=== PATIENT | male | born 1985 | race African-American/Black ===

== ENCOUNTER 2017-01-12 12:47 | Emergency (ER) | payer MEDICAID ==
[~2017-01-12] VITALS: Ht 180.3 cm; Wt 73.8 kg
[~2017-01-12 12:47] MED LIST: ARIP400S3 IM; DIVA500T2; OLAN15TA3
[2017-01-12 12:49] VITALS: BP 135/73
== END 2017-01-12 14:47 | disposition home or self-care (01) ==
LOC: ED 13:13
DX: M25.552 Pain in left hip (principal); F31.9 Bipolar disorder, unspecified

== ENCOUNTER 2017-04-13 21:02 | Emergency (ER) | payer MEDICAID ==
[~2017-04-13] VITALS: Ht 180.3 cm; Wt 75.6 kg
[2017-04-13] MEDS ORDERED: CEFTRIAXONE 250 MG ONE (22:22)
[2017-04-13] MEDS ORDERED: LIDOCAINE 1%, 20ML ONE (22:22)
[2017-04-13] MEDS ORDERED: AZITHROMYCIN 250 MG TABLET ONE (22:25)
[2017-04-13] MEDS ORDERED: AZITHROMYCIN 500 MG TABLET PO ONE (22:30)
[2017-04-13] MEDS ORDERED: CEFTRIAXONE 250 MG IM ONE (22:30)
[2017-04-13 22:41] VITALS: BP 118/82
== END 2017-04-13 22:43 | disposition home or self-care (01) ==
LOC: ED 22:30
DX: N30.00 Acute cystitis without hematuria (principal); Z20.2 Contact with and (suspected) exposure to infections with a predominantly sexual mode of transmission; F17.210 Nicotine dependence, cigarettes, uncomplicated
CPT/HCPCS: 81001; 87086; 87491; 87591; 96372; 99284; J0696

== ENCOUNTER 2017-12-16 09:09 | Emergency (ER) | payer MEDICAID ==
[~2017-12-16] VITALS: Ht 185.4 cm; Wt 78.0 kg
[2017-12-16 09:16] VITALS: BP 142/89
[2017-12-16] MEDS ORDERED: DIPH,PERTUSS(ACELL),TET VAC/PF 0.5 ML IM-VACC ONE ×2 (09:24→09:30)
[2017-12-16] MEDS ORDERED: LIDOCAINE 2%, 20ML SQ ONE (09:30)
[2017-12-16] MEDS ORDERED: BACITRACIN ZINC OINT 500U/GM, 0.9 GM ONE (09:50)
== END 2017-12-16 10:21 | disposition home or self-care (01) ==
LOC: ED 10:00
DX: S51.812A Laceration without foreign body of left forearm, initial encounter (principal); F17.210 Nicotine dependence, cigarettes, uncomplicated; W06.XXXA Fall from bed, initial encounter; Y93.89 Activity, other specified; Y92.89 Other specified places as the place of occurrence of the external cause; Y99.8 Other external cause status
CPT/HCPCS: 12002; 90471; 90715

== ENCOUNTER 2018-07-08 22:14 | Emergency (ER) | payer MEDICAID ==
[~2018-07-08] VITALS: Ht 180.3 cm; Wt 71.0 kg
[2018-07-08 22:14] VITALS: BP 158/104
== END 2018-07-08 23:26 | disposition home or self-care (01) ==
LOC: ED 22:36
DX: F32.1 Major depressive disorder, single episode, moderate (principal); Z59.0 Homelessness; F41.9 Anxiety disorder, unspecified
CPT/HCPCS: 99284

== ENCOUNTER 2018-10-04 00:50 | Emergency (ER) | payer MEDICAID ==
[~2018-10-04] VITALS: Ht 180.3 cm; Wt 64.2 kg
[2018-10-04 00:56] VITALS: BP 146/90
== END 2018-10-04 01:52 | disposition home or self-care (01) ==
LOC: ED 01:10
DX: S62.336A Displaced fracture of neck of fifth metacarpal bone, right hand, initial encounter for closed fracture (principal); F17.200 Nicotine dependence, unspecified, uncomplicated; Z88.5 Allergy status to narcotic agent; X58.XXXA Exposure to other specified factors, initial encounter; Y93.89 Activity, other specified; Y92.009 Unspecified place in unspecified non-institutional (private) residence as the place of occurrence of the external cause; Y99.8 Other external cause status
CPT/HCPCS: 29125; 99283

== ENCOUNTER 2018-10-31 18:56 | Inpatient (IN) | payer MEDICAID ==
[~2018-10-31] VITALS: Ht 180.3 cm; Wt 65.0 kg
[2018-10-31] MEDS ORDERED: SODIUM CHLORIDE 0.9% 1,000ML IVBOLUS ONE (19:00)
[2018-10-31] MEDS ORDERED: SODIUM CHLORIDE FLUSH 10ML SYR IVF ONE (19:00)
[2018-10-31] MEDS ORDERED: ACETAMINOPHEN 500 MG TABLET PO ONE (19:00)
[2018-10-31] MEDS ORDERED: ONDANSETRON 2MG/ML, 2ML IVPush ONE (19:00)
[2018-10-31] MEDS ORDERED: ACETAMINOPHEN 500 MG TABLET ONE (19:04)
[2018-10-31] MEDS ORDERED: ONDANSETRON 2MG/ML, 2ML ONE (19:07)
[2018-10-31] MEDS ORDERED: MORPHINE SULFATE 4 MG/ML, 1ML ONE (19:07)
[2018-10-31] MEDS: MORPHINE SULFATE 4 MG/ML, 1ML IVPush PRN ×2 (19:08→19:28)
[2018-10-31 19:32] LABS: MEAN CORPUSCULAR HEMOGLOBIN 27.2 pg (27.5-34.5); MEAN CORPUSCULAR HGB CONC 32.8 g/dL (33.2-36.2); MEAN CORPUSCULAR VOLUME 82.9 fL (81-97); PLATELET COUNT 213 x10^3/uL (130-400); RED BLOOD COUNT 4.82 x10^6/uL (4.38-5.82); RED CELL DISTRIBUTION WIDTH 15.2 % (9.4-14.8)
[2018-10-31 19:45] LABS: ALANINE AMINOTRANSFERASE 19 U/L (12-78); ALBUMIN 3.3 g/dL (3.4-5.0); ANION GAP 6 mmol/L (5-15); CALCIUM 8.2 mg/dL (8.5-10.1); CHLORIDE 103 mmol/L (98-107); CREATININE 0.91 mg/dL (0.7-1.3)
[2018-10-31 19:50] LABS: ALKALINE PHOSPHATASE 79 U/L (45-117); BILIRUBIN,TOTAL 0.5 mg/dL (0.2-1.0); TROPONIN I < 0.015 ng/mL (0.000-0.045)
[2018-10-31] MEDS ORDERED: CEFTRIAXONE 1,000 MG in SODIUM CHLORIDE 0.9% 50 ML IVPB ONE (20:00)
[2018-10-31] MEDS ORDERED: AZITHROMYCIN 500 MG in SODIUM CHLORIDE 0.9% 250 ML IVPB ONE (20:00)
[2018-10-31 20:16] LABS: BASOPHILS # (AUTO) 0.01 x10^3/uL (0-0.1); BASOPHILS % (AUTO) 0 % (0-1); EOSINOPHILS # (AUTO) 0.01 x10^3/uL (0-0.4); EOSINOPHILS % (AUTO) 0 % (1-7); LYMPHOCYTES # (AUTO) 1.23 x10^3/uL (1-3.4); LYMPHOCYTES % (AUTO) 8 % (22-44); MD SCAN; MONOCYTES # (AUTO) 1.38 x10^3/uL (0.2-0.8); MONOCYTES % (AUTO) 9 % (2-9); NEUTROPHILS # (AUTO) 12.14 x10^3/uL (1.8-6.8); NEUTROPHILS % (AUTO) 82 % (42-75)
[2018-10-31] MEDS ORDERED: OMNIPAQUE 350 MG/ML, 100ML BOTTLE ONE (20:30)
[2018-10-31] MEDS ORDERED: HYDROmorphone 2 MG/ML, 1ML ONE (20:38)
[2018-10-31] MEDS ORDERED: HYDROmorphone 2 MG/ML, 1ML IVPush PRN ×2 (21:00→23:00)
[2018-10-31] MEDS ORDERED: SODIUM CHLORIDE 0.9% 1,000 ML IV SCH (22:37)
[2018-10-31] MEDS ORDERED: ACETAMINOPHEN 325 MG TABLET PO PRN (23:00)
[2018-10-31] MEDS ORDERED: hydrALAzine 20 MG/ML, 1ML IVPush PRN (23:00)
[2018-10-31] MEDS ORDERED: ONDANSETRON 2MG/ML, 2ML IVPush PRN (23:00)
[2018-10-31] MEDS ORDERED: TEMAZEPAM 15 MG CAPSULE PO PRN (23:00)
[2018-10-31] MEDS ORDERED: LIDODERM 5% PATCH TD PRN (23:00)
[2018-10-31] MEDS ORDERED: DOCUSATE 100 MG CAPSULE PO PRN (23:00)
[2018-10-31 23:59] VITALS: BP 154/84
[2018-11-01] MEDS: NICOTINE 21 MG/24 HR PATCH.TD24 TD SCH ×2 (00:12→23:00)
[2018-11-01] MEDS ORDERED: ALBUTEROL SULFATE 2.5 MG/3 ML ONE (00:33)
[2018-11-01] MEDS: ALBUTEROL SULFATE 2.5 MG/3 ML NPPB SCH ×5 (00:35→18:30)
[2018-11-01 01:43] LABS: MICROSCOPIC INDICATED
[2018-11-01 01:47] LABS: CULTURE INDICATED? NO
[2018-11-01 05:13] LABS: MEAN CORPUSCULAR HEMOGLOBIN 27.5 pg (27.5-34.5); MEAN CORPUSCULAR HGB CONC 33.4 g/dL (33.2-36.2); MEAN CORPUSCULAR VOLUME 82.4 fL (81-97); MEAN PLATELET VOLUME 8.8 fL (7.4-10.4); PLATELET COUNT 186 x10^3/uL (130-400); RED BLOOD COUNT 4.23 x10^6/uL (4.38-5.82); RED CELL DISTRIBUTION WIDTH 15.2 % (9.4-14.8)
[2018-11-01 05:25] LABS: ALBUMIN 2.4 g/dL (3.4-5.0); ANION GAP 7 mmol/L (5-15); CALCIUM 7.2 mg/dL (8.5-10.1); CHLORIDE 108 mmol/L (98-107)
[2018-11-01 05:29] LABS: ALANINE AMINOTRANSFERASE 14 U/L (12-78); ALKALINE PHOSPHATASE 63 U/L (45-117); BILIRUBIN,TOTAL 1.1 mg/dL (0.2-1.0); CREATININE 0.72 mg/dL (0.7-1.3)
[2018-11-01 05:37] LABS: BASOPHILS # (AUTO) 0.01 x10^3/uL (0-0.1); BASOPHILS % (AUTO) 0 % (0-1); EOSINOPHILS # (AUTO) 0.01 x10^3/uL (0-0.4); EOSINOPHILS % (AUTO) 0 % (1-7); LYMPHOCYTES # (AUTO) 0.74 x10^3/uL (1-3.4); LYMPHOCYTES % (AUTO) 3 % (22-44); MD SCAN; MONOCYTES # (AUTO) 1.66 x10^3/uL (0.2-0.8); MONOCYTES % (AUTO) 8 % (2-9); NEUTROPHILS # (AUTO) 19.39 x10^3/uL (1.8-6.8); NEUTROPHILS % (AUTO) 89 % (42-75)
[2018-11-01] MEDS: ENOXAPARIN 40 MG/0.4 ML SQ SCH (05:45)
[2018-11-01 08:08] VITALS: BP 107/71
[2018-11-01] MEDS ORDERED: POTASSIUM CHLORIDE 20 MEQ TAB.ER.PRT PO ONE (08:30)
[2018-11-01] MEDS ORDERED: ACETAMINOPHEN 325 MG TABLET PO PRN (08:30)
[2018-11-01] MEDS: CEFTRIAXONE PMX 1GM/50ML 50 ML IV SCH ×2 (09:48→21:48)
[2018-11-01 13:22] VITALS: BP 115/76
[2018-11-01 19:16] VITALS: BP 147/81
[2018-11-01] MEDS ORDERED: ALBUTEROL SULFATE 2.5 MG/3 ML NPPB PRN (20:00)
[2018-11-01] MEDS ORDERED: AZITHROMYCIN 500 MG in SODIUM CHLORIDE 0.9% 250 ML IV SCH (22:00)
[2018-11-01] MEDS: SODIUM CHLORIDE 0.9% 1,000 ML IV SCH (22:37)
[2018-11-02 01:16] VITALS: BP 114/75
[2018-11-02] MEDS: ENOXAPARIN 40 MG/0.4 ML SQ SCH (05:29)
[2018-11-02 05:42] LABS: MEAN CORPUSCULAR HEMOGLOBIN 27.7 pg (27.5-34.5); MEAN CORPUSCULAR HGB CONC 33.3 g/dL (33.2-36.2); MEAN CORPUSCULAR VOLUME 83.3 fL (81-97); MEAN PLATELET VOLUME 8.6 fL (7.4-10.4); PLATELET COUNT 211 x10^3/uL (130-400); RED BLOOD COUNT 4.42 x10^6/uL (4.38-5.82); RED CELL DISTRIBUTION WIDTH 15.3 % (9.4-14.8)
[2018-11-02 05:58] LABS: CHLORIDE 110 mmol/L (98-107); CREATININE 0.64 mg/dL (0.7-1.3)
[2018-11-02 05:59] LABS: ANION GAP 6 mmol/L (5-15); CALCIUM 8.6 mg/dL (8.5-10.1)
[2018-11-02 06:13] LABS: BASOPHILS # (AUTO) 0.01 x10^3/uL (0-0.1); BASOPHILS % (AUTO) 0 % (0-1); EOSINOPHILS # (AUTO) 0.08 x10^3/uL (0-0.4); EOSINOPHILS % (AUTO) 0 % (1-7); LYMPHOCYTES # (AUTO) 1.43 x10^3/uL (1-3.4); LYMPHOCYTES % (AUTO) 7 % (22-44); MD SCAN; MONOCYTES % (AUTO) 10 % (2-9); NEUTROPHILS # (AUTO) 16.47 x10^3/uL (1.8-6.8); NEUTROPHILS % (AUTO) 82 % (42-75)
[2018-11-02 06:59] VITALS: BP 126/87
[2018-11-02] MEDS: SODIUM CHLORIDE 0.9% 1,000 ML IV SCH ×2 (08:36→19:54)
[2018-11-02] MEDS: CEFTRIAXONE PMX 1GM/50ML 50 ML IV SCH ×2 (11:10→21:41)
[2018-11-02] MEDS: SENNA/DOCUSATE TABLET PO SCH (11:10)
[2018-11-02 14:15] VITALS: BP 116/73
[2018-11-02] MEDS: ACETAMINOPHEN 325 MG TABLET PO SCH ×2 (14:40→19:54)
[2018-11-02 19:38] VITALS: BP 115/79
[2018-11-02] MEDS: NICOTINE 21 MG/24 HR PATCH.TD24 TD SCH (23:00)
[2018-11-03] MEDS: ACETAMINOPHEN 325 MG TABLET PO SCH ×2 (02:32→08:30)
[2018-11-03 02:36] VITALS: BP 133/78
[2018-11-03] MEDS: SODIUM CHLORIDE 0.9% 1,000 ML IV SCH (05:23)
[2018-11-03] MEDS: ENOXAPARIN 40 MG/0.4 ML SQ SCH (05:24)
[2018-11-03 07:32] VITALS: BP 126/81
[2018-11-03 07:58] LABS: MEAN CORPUSCULAR HEMOGLOBIN 26.9 pg (27.5-34.5); MEAN CORPUSCULAR HGB CONC 32.5 g/dL (33.2-36.2); MEAN CORPUSCULAR VOLUME 82.7 fL (81-97); MEAN PLATELET VOLUME 8.8 fL (7.4-10.4); PLATELET COUNT 246 x10^3/uL (130-400); RED BLOOD COUNT 4.53 x10^6/uL (4.38-5.82); RED CELL DISTRIBUTION WIDTH 15.5 % (9.4-14.8)
[2018-11-03 08:18] LABS: BASOPHILS # (AUTO) 0.03 x10^3/uL (0-0.1); BASOPHILS % (AUTO) 0 % (0-1); EOSINOPHILS # (AUTO) 0.13 x10^3/uL (0-0.4); EOSINOPHILS % (AUTO) 1 % (1-7); LYMPHOCYTES # (AUTO) 1.84 x10^3/uL (1-3.4); LYMPHOCYTES % (AUTO) 15 % (22-44); MD SCAN; MONOCYTES # (AUTO) 0.94 x10^3/uL (0.2-0.8); MONOCYTES % (AUTO) 8 % (2-9); NEUTROPHILS # (AUTO) 9.26 x10^3/uL (1.8-6.8); NEUTROPHILS % (AUTO) 76 % (42-75)
[2018-11-03] MEDS: SENNA/DOCUSATE TABLET PO SCH (08:54)
[2018-11-03] MEDS ORDERED: NICO-487 TD (09:14)
[2018-11-03] MEDS ORDERED: DOXY100C2 PO (09:14)
[2018-11-03] MEDS ORDERED: AMOX-291 PO (09:14)
== END 2018-11-03 10:30 | disposition home or self-care (01) | DRG 871 ==
LOC: MERGE 18:56 → ED 19:52 → EDIP 20:03 → 4WST 23:52 → DCLOUNGE 11-03 10:12
PROVIDERS: ADMIT Internal Medicine; ATTEND Internal Medicine
DX: A41.9 Sepsis, unspecified organism (principal); J15.9 Unspecified bacterial pneumonia; E87.6 Hypokalemia; F17.210 Nicotine dependence, cigarettes, uncomplicated; F31.9 Bipolar disorder, unspecified; G47.00 Insomnia, unspecified; I10 Essential (primary) hypertension; J45.909 Unspecified asthma, uncomplicated; Z59.0 Homelessness; Z82.5 Family history of asthma and other chronic lower respiratory diseases; Z88.8 Allergy status to other drugs, medicaments and biological substances; Z71.6 Tobacco abuse counseling
CPT/HCPCS: 36415; 36600; 84145; 87806; 99285; J7613; 71045; 71275; 80048; 80053; 81001; 82803; 83605; 83735; 83880; 84484; 85025; 87040; 93005; 93306; 94640; G0378; J0456; J0696; J1170; J1650; J2405; Q9967; G0475; J7030; J7050

== ENCOUNTER 2018-12-05 18:04 | Emergency (ER) | payer MEDICAID ==
[~2018-12-05] VITALS: Ht 180.3 cm; Wt 68.2 kg
[~2018-12-05 18:04] MED LIST changes: +AMOX-291 PO; +DOXY100C2 PO; +NICO-487 TD
[2018-12-05 18:49] VITALS: BP 109/66
--- NOTE | 2018-12-05 18:54 | NUR ---
PT AMBULATED TO ROOM WITH EDT.
--- NOTE | 2018-12-05 19:20 | NUR ---
KYLE GARNETT, AT BEDSIDE TO EVALUATE PT.
--- NOTE | 2018-12-05 19:27 | NUR ---
PT AMBULATED TO IMAGING, WITH TECH.
--- NOTE | 2018-12-05 19:31 | NUR ---
PT BACK TO ROOM FROM IMAGING.
--- NOTE | 2018-12-05 20:21 | NUR ---
Patient/Caregiver given discharge instructions and they have confirmed that they understand the instructions. Patient ambulatory with steady gait.
== END 2018-12-05 20:23 | disposition home or self-care (01) ==
LOC: ED 20:00
DX: J06.9 Acute upper respiratory infection, unspecified (principal); F17.210 Nicotine dependence, cigarettes, uncomplicated
CPT/HCPCS: 71046; 99283

== ENCOUNTER 2019-01-17 23:52 | Emergency (ER) | payer MEDICAID ==
[~2019-01-17] VITALS: Ht 180.3 cm; Wt 65.0 kg
--- NOTE | 2019-01-18 00:06 | NUR ---
assessment made. PA at bedside.
--- NOTE | 2019-01-18 00:18 | NUR ---
Blood drawn by brush clearing laborer. medicated. X ray at bedside.
[2019-01-18] MEDS ORDERED: ALBUTEROL/IPRATROPIUM 2.5MG/0.5MG, 3 ML ONE (00:23)
--- NOTE | 2019-01-18 00:28 | NUR ---
RT at bedside for breathing treatment.
[2019-01-18 00:30] LABS: MEAN CORPUSCULAR HEMOGLOBIN 27.3 pg (27.5-34.5); MEAN CORPUSCULAR HGB CONC 33.2 g/dL (33.2-36.2); MEAN CORPUSCULAR VOLUME 82.4 fL (81-97); MEAN PLATELET VOLUME 8.2 fL (7.4-10.4); PLATELET COUNT 219 x10^3/uL (130-400); RED BLOOD COUNT 4.61 x10^6/uL (4.38-5.82); RED CELL DISTRIBUTION WIDTH 15.5 % (9.4-14.8)
[2019-01-18] MEDS ORDERED: ALBUTEROL/IPRATROPIUM 2.5MG/0.5MG, 3 ML NPPB ONE (00:30)
[2019-01-18 00:31] LABS: ALANINE AMINOTRANSFERASE 20 U/L (12-78); ALBUMIN 3.6 g/dL (3.4-5.0); ANION GAP 5 mmol/L (5-15); CALCIUM 8.1 mg/dL (8.5-10.1); CHLORIDE 109 mmol/L (98-107); CREATININE 0.89 mg/dL (0.7-1.3)
[2019-01-18 00:35] LABS: ALKALINE PHOSPHATASE 70 U/L (45-117); BILIRUBIN,TOTAL 0.2 mg/dL (0.2-1.0); TOTAL PROTEIN 7.1 g/dL (6.4-8.2); TROPONIN I < 0.015 ng/mL (0.000-0.045)
[2019-01-18 00:56] LABS: MD YES
--- NOTE | 2019-01-18 00:58 | NUR ---
pt stated pt recieved breathing tx vss stable family at bed miguel e
[2019-01-18 01:05] LABS: BAND#(MANUAL) 0.04 x10^3/uL; BANDS%(MANUAL) 1 % (0-7); EOS#(MANUAL) 0.07 x10^3/uL (0.0-0.4); EOS% (MANUAL) 2 % (1-7); LYMPH#(MANUAL) 0.97 x10^3/uL (1-3.4); LYMPHS% (MANUAL) 27 % (22-44); MONOS#(MANUAL) 0.76 x10^3/uL (0.3-2.7); MONOS% (MANUAL) 21 % (2-9); SEG#(MANUAL) 1.76 x10^3/uL (1.8-6.8); SEGS% (MANUAL) 49 % (42-75)
[2019-01-18 01:06] LABS: ANISOCYTOSIS 1+
[2019-01-18 01:07] LABS: <PLATELET ESTIMATE> ADEQUATE; <PLT MORPHOLOGY> NORMAL PLT MORPH
--- NOTE | 2019-01-18 01:18 | NUR ---
REPORT RECIEVED FROM MILTON SANCHEZ
[2019-01-18 01:42] VITALS: BP 111/77
== END 2019-01-18 01:44 | disposition home or self-care (01) ==
LOC: ED 01-18 00:56
DX: J06.9 Acute upper respiratory infection, unspecified (principal); J45.909 Unspecified asthma, uncomplicated
CPT/HCPCS: 36415; 71045; 80053; 84484; 85025; 93005; 94640; 99284; J7512; J7620

== ENCOUNTER 2019-03-16 23:14 | Emergency (ER) | payer MEDICAID ==
[~2019-03-16] VITALS: Ht 175.3 cm; Wt 67.6 kg
[2019-03-16 23:16] VITALS: BP 160/77
[2019-03-16] MEDS ORDERED: KETOROLAC 30 MG/1 ML ONE (23:40)
[2019-03-16] MEDS ORDERED: METHOCARBAMOL 750 MG TABLET ONE (23:40)
[2019-03-16] MEDS: KETOROLAC 30 MG/1 ML IM ONE ×2 (23:41→23:43)
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
[2019-03-17] MEDS ORDERED: METHOCARBAMOL 750 MG TABLET PO ONE
== END 2019-03-17 00:07 | disposition home or self-care (01) ==
LOC: ED 23:59
DX: S39.012A Strain of muscle, fascia and tendon of lower back, initial encounter (principal); W19.XXXA Unspecified fall, initial encounter; Y93.89 Activity, other specified; Y92.89 Other specified places as the place of occurrence of the external cause; Y99.8 Other external cause status
CPT/HCPCS: 99283; J1885

== ENCOUNTER 2019-04-10 20:28 | Emergency (ER) | payer MEDICAID ==
[~2019-04-10] VITALS: Ht 180.3 cm; Wt 63.5 kg
[2019-04-10 20:29] VITALS: BP 136/71
[2019-04-10] MEDS ORDERED: METHOCARBAMOL 750 MG TABLET PO ONE (21:00)
[2019-04-10] MEDS ORDERED: METHOCARBAMOL 750 MG TABLET ONE (21:01)
== END 2019-04-10 21:21 | disposition home or self-care (01) ==
LOC: ED 21:02
DX: S39.012A Strain of muscle, fascia and tendon of lower back, initial encounter (principal); J45.909 Unspecified asthma, uncomplicated; G89.29 Other chronic pain; X58.XXXA Exposure to other specified factors, initial encounter; Y93.89 Activity, other specified; Y92.89 Other specified places as the place of occurrence of the external cause; Y99.8 Other external cause status
CPT/HCPCS: 99283

== ENCOUNTER 2019-05-10 19:57 | Emergency (ER) | payer MEDICAID ==
[~2019-05-10] VITALS: Ht 180.3 cm; Wt 65.7 kg
[2019-05-10 20:07] VITALS: BP 117/72
== END 2019-05-10 22:00 | disposition home or self-care (01) ==
LOC: ED 21:40
DX: A56.01 Chlamydial cystitis and urethritis (principal); F31.9 Bipolar disorder, unspecified; J45.909 Unspecified asthma, uncomplicated; Z87.01 Personal history of pneumonia (recurrent)
CPT/HCPCS: 81001; 87077; 87086; 87491; 87591; 96372; 99283; J0696

== ENCOUNTER 2019-11-23 09:53 | Inpatient (IN) | payer MEDICAID ==
[~2019-11-23] VITALS: Ht 180.3 cm; Wt 61.0 kg
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
--- NOTE | 2019-11-23 11:54 | NUR ---
PT TO CT.
[2019-11-23] MEDS ORDERED: AMPICILLIN/SULBACTAM 3 GM in SODIUM CHLORIDE 0.9% 100 ML IV ONE (13:00)
[2019-11-23] MEDS ORDERED: SODIUM CHLORIDE FLUSH 10ML SYR IVF ONE (13:00)
--- NOTE | 2019-11-23 13:24 | NUR ---
PLAN FOR ADMIT AND POSSILE SURGERY. PT EDUCATED, EKG COMPLETED, XR COMPLETED. PIV ESTBALISHED AND LABS DRAWN. PT IN GOWN AND ON MONITOR.
[2019-11-23 13:36] LABS: MEAN CORPUSCULAR HEMOGLOBIN 27.4 pg (27.5-34.5); MEAN CORPUSCULAR HGB CONC 32.7 g/dL (33.2-36.2); MEAN PLATELET VOLUME 8.9 fL (7.4-10.4); PLATELET COUNT 218 x10^3/uL (130-400); RED BLOOD COUNT 5.13 x10^6/uL (4.38-5.82); RED CELL DISTRIBUTION WIDTH 15.7 % (9.4-14.8)
[2019-11-23 13:48] LABS: ALBUMIN 3.9 g/dL (3.4-5.0); ANION GAP 7 mmol/L (5-15); CHLORIDE 105 mmol/L (98-107)
[2019-11-23 13:49] LABS: CREATININE 0.95 mg/dL (0.7-1.3)
--- NOTE | 2019-11-23 13:53 | NUR ---
IV ABX INFUSING PER ORDERS.
[2019-11-23 13:59] LABS: MD YES
[2019-11-23 14:01] LABS: BASOS#(MANUAL) 0.07 x10^3/uL (0-0.1); BASOS% (MANUAL) 1 % (0-1); LYMPH#(MANUAL) 1.43 x10^3/uL (1-3.4); LYMPHS% (MANUAL) 21 % (22-44); MONOS#(MANUAL) 0.95 x10^3/uL (0.3-2.7); MONOS% (MANUAL) 14 % (2-9); SEG#(MANUAL) 4.35 x10^3/uL (1.8-6.8); SEGS% (MANUAL) 64 % (42-75)
[2019-11-23 14:02] LABS: <PLATELET ESTIMATE> ADEQUATE; <PLT MORPHOLOGY> NORMAL PLT MORPH; ANISOCYTOSIS 1+
--- NOTE | 2019-11-23 14:57 | NUR ---
DR. PERSAUD AT BEDSIDE.
--- NOTE | 2019-11-23 17:32 | NUR ---
SM AT BEDSIDE. DIET TRAY ORDERED.
[2019-11-23] MEDS ORDERED: morphine SULFATE 10 MG/ML, 1ML IVPush PRN (18:00)
[2019-11-23] MEDS ORDERED: ONDANSETRON 2MG/ML, 2ML IVPush PRN (18:00)
[2019-11-23] MEDS ORDERED: DOCUSATE 100 MG CAPSULE PO PRN (18:00)
[2019-11-23] MEDS ORDERED: POLYETHYLENE GLYCOL 17 GM PACKET PO PRN (18:00)
[2019-11-23] MEDS ORDERED: BISACODYL 10 MG SUPP PR PRN (18:00)
[2019-11-23] MEDS ORDERED: POTASSIUM CHLORIDE 20 MEQ TAB.ER.PRT PO ONE (18:00)
[2019-11-23] MEDS ORDERED: ACETAMINOPHEN 325 MG TABLET PO PRN (18:00)
--- NOTE | 2019-11-23 18:34 | NUR ---
PT MOVED TO 14.
--- NOTE | 2019-11-23 18:43 | NUR ---
MEAL TRAY PROVIDED AT THIS TIME.
[2019-11-23] MEDS ORDERED: POTASSIUM CHLORIDE 20 MEQ TAB.ER.PRT ONE (18:55)
--- NOTE | 2019-11-23 18:55 | NUR ---
REPORT GIVEN TO BREANNA SANCHEZ.
[2019-11-23] MEDS ORDERED: HYDROcodone/APAP 5/325 TABLET ONE (18:56)
[2019-11-23] MEDS: HYDROcodone/APAP 5/325 TABLET PO PRN ×2 (19:01→22:58)
[2019-11-23] MEDS: SODIUM CHLORIDE 0.9% 1,000 ML IV SCH (19:02)
--- NOTE | 2019-11-23 19:19 | NUR ---
PT ON HOSPITAL BED.
--- NOTE | 2019-11-23 19:19 | NUR ---
PT MEDICATED PER MAR. PT REMINDED TO USE CALL LIGHT. PT PROVIDED WARM BLANKET FOR COMFORT, DENIES FURTHER NEEDS AT THIS TIME. UPDATED ON POC.
--- NOTE | 2019-11-23 20:37 | NUR ---
FIRST ATTEMPT TO CALL REPORT.
--- NOTE | 2019-11-23 20:46 | NUR ---
REPORT TO DANIEL ORTEGA
[2019-11-23 21:08] VITALS: BP 127/76
[2019-11-23] MEDS: AMPICILLIN/SULBACTAM 3 GM in SODIUM CHLORIDE 0.9% 100 ML IV SCH (22:33)
[2019-11-24 01:02] VITALS: BP 120/79
[2019-11-24 05:51] LABS: BASOPHILS # (AUTO) 0.04 x10^3/uL (0-0.1); BASOPHILS % (AUTO) 1 % (0-1); EOSINOPHILS # (AUTO) 0.09 x10^3/uL (0-0.4); EOSINOPHILS % (AUTO) 1 % (1-7); LYMPHOCYTES # (AUTO) 1.93 x10^3/uL (1-3.4); LYMPHOCYTES % (AUTO) 31 % (22-44); MD NO; MEAN CORPUSCULAR HEMOGLOBIN 27.1 pg (27.5-34.5); MEAN CORPUSCULAR HGB CONC 32.2 g/dL (33.2-36.2); MEAN PLATELET VOLUME 8.8 fL (7.4-10.4); MONOCYTES # (AUTO) 0.87 x10^3/uL (0.2-0.8); MONOCYTES % (AUTO) 14 % (2-9); NEUTROPHILS # (AUTO) 3.23 x10^3/uL (1.8-6.8); NEUTROPHILS % (AUTO) 52 % (42-75); PLATELET COUNT 197 x10^3/uL (130-400); RED BLOOD COUNT 4.79 x10^6/uL (4.38-5.82); RED CELL DISTRIBUTION WIDTH 15.7 % (9.4-14.8)
[2019-11-24 05:59] LABS: ALANINE AMINOTRANSFERASE 73 U/L (12-78); ALBUMIN 3.3 g/dL (3.4-5.0); ANION GAP 3 mmol/L (5-15); CALCIUM 8.4 mg/dL (8.5-10.1); CHLORIDE 111 mmol/L (98-107); CREATININE 0.77 mg/dL (0.7-1.3)
[2019-11-24 06:09] LABS: ALKALINE PHOSPHATASE 61 U/L (45-117); BILIRUBIN,TOTAL 0.5 mg/dL (0.2-1.0); TOTAL PROTEIN 6.9 g/dL (6.4-8.2)
[2019-11-24] MEDS: AMPICILLIN/SULBACTAM 3 GM in SODIUM CHLORIDE 0.9% 100 ML IV SCH ×3 (06:22→22:19)
[2019-11-24 08:10] VITALS: BP 116/69
[2019-11-24] MEDS: SODIUM CHLORIDE 0.9% 1,000 ML IV SCH (08:34)
[2019-11-24] MEDS ORDERED: BALANCED SALT OPHTH IRRIG SOLN 18ML ONE (13:12)
[2019-11-24] MEDS ORDERED: OXYMETAZOLINE NASAL SPRAY 0.05%, 15ML ONE (13:12)
[2019-11-24] MEDS ORDERED: LIDOCAINE 1%-EPI 1:100K, 20ML ONE (13:12)
[2019-11-24] MEDS ORDERED: FENTANYL PF 250 MCG/5ML ONE (13:17)
[2019-11-24] MEDS ORDERED: MIDAZOLAM 1 MG/ML, 2ML ONE (13:17)
[2019-11-24] MEDS ORDERED: PROMETHAZINE 25 MG/ML, 1ML IV PRN (13:30)
[2019-11-24] MEDS ORDERED: LABETALOL 5MG/ML, 20ML IV PRN (13:30)
[2019-11-24] MEDS ORDERED: OXYcodone 5 MG/5 ML ORAL.SOL UDC PO PRN (13:30)
[2019-11-24] MEDS: D5%-0.45% NACL 1,000 ML IV SCH ×2 (13:30→21:45)
[2019-11-24] MEDS ORDERED: HALOPERIDOL 5 MG/ML IV PRN (13:30)
[2019-11-24] MEDS ORDERED: MEPERIDINE/PF 25MG/ML,1ML IVPush PRN (13:30)
[2019-11-24] MEDS ORDERED: FENTANYL PF 100 MCG/2ML IV PRN (13:30)
[2019-11-24] MEDS ORDERED: HYDROmorphone 2 MG/ML, 1ML IVPush PRN (13:30)
[2019-11-24] MEDS ORDERED: FENTANYL PF 100 MCG/2ML ONE ×2 (14:37→16:58)
[2019-11-24] MEDS ORDERED: ONDANSETRON 2MG/ML, 2ML ONE (16:16)
[2019-11-24] MEDS ORDERED: PROPOFOL 10 MG/ML, 20ML ONE (16:16)
[2019-11-24] MEDS ORDERED: NEOSTIGMINE 1 MG/ML, 10ML ONE ×2 (16:16)
[2019-11-24] MEDS ORDERED: SUCCINYLCHOLINE 20 MG/ML, 10ML ONE (16:16)
[2019-11-24] MEDS ORDERED: ROCURONIUM 10MG/ML,5ML ONE (16:16)
[2019-11-24] MEDS ORDERED: GLYCOPYRROLATE 0.2MG/1ML, 5ML ONE (16:16)
[2019-11-24] MEDS ORDERED: CEFAZOLIN 1,000 MG ONE (16:16)
[2019-11-24] MEDS ORDERED: DEXAMETHASONE 4 MG/ML, 1ML ONE (16:16)
[2019-11-24] MEDS ORDERED: OXYcodone 5 MG/5 ML ORAL.SOL UDC ONE (16:57)
[2019-11-24] MEDS ORDERED: hydrALAzine 20 MG/ML, 1ML ONE (17:15)
[2019-11-24] MEDS: hydrALAzine 20 MG/ML, 1ML IV PRN ×2 (17:18→17:54)
[2019-11-24] MEDS ORDERED: HYDROmorphone 1 MG/ML, 1ML INJ ONE (17:25)
[2019-11-24 18:21] VITALS: BP 142/87
[2019-11-25] VITALS: BP 158/87
[2019-11-25 03:06] VITALS: BP 119/68
[2019-11-25] MEDS: AMPICILLIN/SULBACTAM 3 GM in SODIUM CHLORIDE 0.9% 100 ML IV SCH ×3 (06:21→22:30)
[2019-11-25 07:55] VITALS: BP 132/74
[2019-11-25] MEDS: HYDROcodone/APAP 5/325 TABLET PO PRN ×3 (08:37→22:18)
[2019-11-25] MEDS: D5%-0.45% NACL 1,000 ML IV SCH (09:30)
[2019-11-25 13:25] VITALS: BP 155/88
[2019-11-25 20:33] VITALS: BP 135/84
[2019-11-26 01:22] VITALS: BP 125/82
[2019-11-26] MEDS: AMPICILLIN/SULBACTAM 3 GM in SODIUM CHLORIDE 0.9% 100 ML IV SCH (05:52)
[2019-11-26 07:49] VITALS: BP 116/69
[2019-11-26] MEDS ORDERED: ACET325T26 PO (08:45)
[2019-11-26] MEDS ORDERED: AMOX1TAB64 PO (08:45)
== END 2019-11-26 10:23 | disposition home or self-care (01) | DRG 92 ==
LOC: ED 13:24 → EDIP 15:14 → 4NE 21:03 → DCLOUNGE 11-26 10:19
PROVIDERS: ADMIT Hospitalist; ATTEND Hospitalist
PROC: 0NST04Z Reposition Right Mandible with Internal Fixation Device, Open Approach (ICD-10-PCS; 2019-11-24)
PROC: 0NSV04Z Reposition Left Mandible with Internal Fixation Device, Open Approach (ICD-10-PCS; principal; 2019-11-24 13:00)
DX: S02.601A Fracture of unspecified part of body of right mandible, initial encounter for closed fracture (principal); F20.9 Schizophrenia, unspecified; S02.40CA Maxillary fracture, right side, initial encounter for closed fracture; S02.40EA Zygomatic fracture, right side, initial encounter for closed fracture; S02.642A Fracture of ramus of left mandible, initial encounter for closed fracture; E16.2 Hypoglycemia, unspecified; E87.6 Hypokalemia; F15.90 Other stimulant use, unspecified, uncomplicated; F17.200 Nicotine dependence, unspecified, uncomplicated; F31.9 Bipolar disorder, unspecified; I45.10 Unspecified right bundle-branch block; J45.909 Unspecified asthma, uncomplicated; Z59.0 Homelessness; Z82.3 Family history of stroke; Z82.49 Family history of ischemic heart disease and other diseases of the circulatory system; Z87.01 Personal history of pneumonia (recurrent); Z87.09 Personal history of other diseases of the respiratory system; Y04.0XXA Assault by unarmed brawl or fight, initial encounter; Y93.89 Activity, other specified; Y92.89 Other specified places as the place of occurrence of the external cause; Y99.8 Other external cause status
CPT/HCPCS: 36415; 70486; 71045; 80048; 80053; 82040; 83735; 84100; 84443; 85025; 93005; 99285; C1713; G0378; J0295; J0690; J1100; J1170; J2250; J2405; J2704; J2710; J3010; J3490; J0330; J0360; J7030

== ENCOUNTER 2019-12-02 12:00 | Emergency (ER) | payer MEDICAID ==
[~2019-12-02] VITALS: Ht 180.3 cm; Wt 66.4 kg
[~2019-12-02 12:00] MED LIST changes: +ACET325T26 PO; +AMOX1TAB64 PO
--- NOTE | 2019-12-02 15:19 | NUR ---
PT AMBULATORY WITH STEADY GAIT TO ROOM AT THIS TIME.
--- NOTE | 2019-12-02 15:36 | NUR ---
Pt resting on gurney, in gown, call light within reach. at [facility] assessing and discussing plan of care. NAD, denies additional needs at this time. CORTNEY.
[2019-12-02 16:30] VITALS: BP 130/86
== END 2019-12-02 16:33 | disposition home or self-care (01) ==
LOC: ED 16:00
DX: R51 Headache (principal); M96.89 Other intraoperative and postprocedural complications and disorders of the musculoskeletal system; I10 Essential (primary) hypertension; F20.9 Schizophrenia, unspecified; J45.909 Unspecified asthma, uncomplicated; F17.200 Nicotine dependence, unspecified, uncomplicated
CPT/HCPCS: 99283

== ENCOUNTER 2020-01-26 22:36 | Emergency (ER) | payer MEDICAID ==
[~2020-01-26] VITALS: Ht 180.3 cm; Wt 63.6 kg
[2020-01-26 22:39] VITALS: BP 131/85
== END 2020-01-26 23:23 | disposition home or self-care (01) ==
LOC: ED 22:50
DX: K04.7 Periapical abscess without sinus (principal); I10 Essential (primary) hypertension; F17.210 Nicotine dependence, cigarettes, uncomplicated
CPT/HCPCS: 99283

== ENCOUNTER 2020-02-25 14:56 | Emergency (ER) | payer MEDICAID ==
[~2020-02-25] VITALS: Ht 180.3 cm; Wt 67.0 kg
[2020-02-25 14:59] VITALS: BP 133/82
--- NOTE | 2020-02-25 15:31 | NUR ---
CYBER TRANSPORT SYSTEMS SPECIALIST: PT TO ROOM FROM [facility]
--- NOTE | 2020-02-25 16:05 | NUR ---
DC EDUCATION PROVIDED, PT DEMONSTRATES UNDERSTANDING. PT AMBULATED STEADILY TO DC WITH RN AND FRIEND.
== END 2020-02-25 16:07 | disposition home or self-care (01) ==
LOC: ED 16:00
DX: K02.9 Dental caries, unspecified (principal); T18.0XXA Foreign body in mouth, initial encounter; I10 Essential (primary) hypertension; F17.200 Nicotine dependence, unspecified, uncomplicated; X58.XXXA Exposure to other specified factors, initial encounter; Y93.89 Activity, other specified; Y92.89 Other specified places as the place of occurrence of the external cause; Y99.8 Other external cause status
CPT/HCPCS: 99283

== ENCOUNTER 2020-04-28 14:15 | Emergency (ER) | payer MEDICAID, OTHER ==
[~2020-04-28] VITALS: Ht 180.3 cm; Wt 64.0 kg
[2020-04-28 14:29] VITALS: BP 104/78
[2020-04-28] MEDS ORDERED: METHOCARBAMOL 750 MG TABLET PO ONE (15:00)
[2020-04-28] MEDS ORDERED: KETOROLAC 30 MG/1 ML IM ONE (15:00)
[2020-04-28] MEDS ORDERED: METHOCARBAMOL 750 MG TABLET ONE (15:12)
[2020-04-28] MEDS ORDERED: KETOROLAC 30 MG/1 ML ONE (15:12)
== END 2020-04-28 16:04 | disposition home or self-care (01) ==
LOC: ED 15:30
DX: S39.012A Strain of muscle, fascia and tendon of lower back, initial encounter (principal); I10 Essential (primary) hypertension; J45.909 Unspecified asthma, uncomplicated; F17.200 Nicotine dependence, unspecified, uncomplicated; Z90.89 Acquired absence of other organs; X58.XXXA Exposure to other specified factors, initial encounter; Y93.89 Activity, other specified; Y92.89 Other specified places as the place of occurrence of the external cause; Y99.8 Other external cause status
CPT/HCPCS: 96372; 99283; J1885

== ENCOUNTER 2020-08-15 13:22 | Emergency (ER) | payer MEDICAID ==
[~2020-08-15] VITALS: Ht 180.3 cm; Wt 64.7 kg
[2020-08-15 14:51] LABS: BASOPHILS % (AUTO) 1 % (0-1); MEAN PLATELET VOLUME 8.1 fL (7.4-10.4)
[2020-08-15 14:53] LABS: EOSINOPHILS % (AUTO) 1 % (1-7); LYMPHOCYTES % (AUTO) 28 % (22-44); MD NO; MEAN CORPUSCULAR HEMOGLOBIN 27.1 pg (27.5-34.5); MEAN CORPUSCULAR HGB CONC 32.7 g/dL (33.2-36.2); MONOCYTES % (AUTO) 13 % (2-9); NEUTROPHILS % (AUTO) 57 % (42-75); PLATELET COUNT 310 x10^3/uL (130-400); RED BLOOD COUNT 5.58 x10^6/uL (4.38-5.82)
[2020-08-15 15:03] LABS: ALBUMIN 4.5 g/dL (3.4-5.0); ANION GAP 3 mmol/L (5-15); CALCIUM 9.6 mg/dL (8.5-10.1); CHLORIDE 108 mmol/L (98-107)
[2020-08-15 15:10] LABS: ALANINE AMINOTRANSFERASE 21 U/L (12-78); ALKALINE PHOSPHATASE 86 U/L (45-117); BILIRUBIN,TOTAL 0.4 mg/dL (0.2-1.0); CREATININE 1.09 mg/dL (0.7-1.3); TOTAL PROTEIN 9.3 g/dL (6.4-8.2); TROPONIN I < 0.015 ng/mL (0.000-0.045)
[2020-08-15 17:25] VITALS: BP 141/84
== END 2020-08-15 17:27 | disposition home or self-care (01) ==
LOC: ED 17:10
DX: B37.0 Candidal stomatitis (principal); R07.89 Other chest pain; R51.9 Headache, unspecified; M54.5 Low back pain; R68.84 Jaw pain; I10 Essential (primary) hypertension; J45.909 Unspecified asthma, uncomplicated; Z90.89 Acquired absence of other organs
CPT/HCPCS: 36415; 70100; 71045; 80053; 84484; 85025; 93005; 99285

== ENCOUNTER 2020-08-22 21:58 | Emergency (ER) | payer MEDICAID ==
[~2020-08-22] VITALS: Ht 180.3 cm; Wt 67.0 kg
[2020-08-22 22:01] VITALS: BP 94/48
[2020-08-22] MEDS ORDERED: SODIUM CHLORIDE FLUSH 10ML SYR IVF ONE (23:30)
[2020-08-22 23:41] LABS: BASOPHILS % (AUTO) 1 % (0-1); EOSINOPHILS % (AUTO) 0 % (1-7); LYMPHOCYTES % (AUTO) 16 % (22-44); MEAN CORPUSCULAR HEMOGLOBIN 27.3 pg (27.5-34.5); MEAN CORPUSCULAR HGB CONC 33.3 g/dL (33.2-36.2); MEAN PLATELET VOLUME 8.5 fL (7.4-10.4); MONOCYTES % (AUTO) 7 % (2-9); NEUTROPHILS % (AUTO) 77 % (42-75); PLATELET COUNT 248 x10^3/uL (130-400); RED BLOOD COUNT 5.06 x10^6/uL (4.38-5.82); RED CELL DISTRIBUTION WIDTH 14.7 % (9.4-14.8)
[2020-08-22 23:44] LABS: MD NO
--- NOTE | 2020-08-22 23:44 | NUR ---
PT. TO ROOM FROM LOBBY AT THIS TIME. LABS DRAWN PRIOR TO GOING TO ROOM.
--- NOTE | 2020-08-22 23:47 | NUR ---
PT. TOLD TO CHANGE INTO GOWN. PT. HAS BEEN ON PHONE AND IS NOT CHANGING INTO GOWN DESPITE RN REQUESTS. PT. STATES "I CAME HERE FOR MY ANXIETY, I WOULD LIKE A BREATHING TREATMENT, AND I WANT TO GET SOME ANTIBIOTIC SHOTS FOR THE INFECTION IN MY MOUTH. ALSO, MY BACK HURTS BECAUSE I HAVEN'T BEEN ABLE TO MAKE IT TO MY CHIROPRACTOR." PT. AGAIN INSTRUCTED TO CHANGE INTO GOWN.
[2020-08-22 23:50] LABS: ALANINE AMINOTRANSFERASE 22 U/L (12-78); ANION GAP 4 mmol/L (5-15); CHLORIDE 104 mmol/L (98-107)
[2020-08-22 23:53] LABS: ALKALINE PHOSPHATASE 75 U/L (45-117); BILIRUBIN,TOTAL 0.4 mg/dL (0.2-1.0); CREATININE 1.12 mg/dL (0.7-1.3)
== END 2020-08-23 00:15 | disposition home or self-care (01) ==
LOC: ED 22:28
DX: R11.10 Vomiting, unspecified (principal); T81.9XXA Unspecified complication of procedure, initial encounter; I10 Essential (primary) hypertension; J45.909 Unspecified asthma, uncomplicated; Z90.49 Acquired absence of other specified parts of digestive tract; F17.200 Nicotine dependence, unspecified, uncomplicated
CPT/HCPCS: 36415; 80053; 85025; 99283